=== PATIENT | male | born 1985 | race Two or more races ===

== ENCOUNTER 2017-05-26 21:18 | Emergency (ER) | payer OTHER ==
[2017-05-26 22:41] LABS: Urine Appearance Clear; Urine Blood Negative (Negative); Urine Color Straw; Urine Ketones Negative (Negative); Urine Protein Negative (Negative); Urine Specific Gravity 1.004 (1.010-1.030); Urine Urobilinogen Negative (Negative)
[2017-05-26 22:50] LABS: EGFR Non-African American 101.7 (>60)
[2017-05-26 22:53] LABS: ABS Basophils 0.1 10^3/ul (0-0.2); ABS Eosinophils 0.1 10^3/ul (0-0.6); ABS Lymphocytes 2.5 10^3/ul (1.0-4.8); ABS Monocytes 0.8 10^3/ul (0-0.8); ABS Neutrophils 6.2 10^3/ul (1.5-7.7); ABS Nucleated RBC 0 10^3/ul; Eosinophil % 1.2 % (0-6); Hematocrit 45 % (42-52); Hemoglobin 15.3 g/dl (14.0-18.0); Lymphocyte % 25.9 % (25-47); Mean Corpuscular HGB Conc 34 g/dl (31-36); Mean Corpuscular Hemoglobin 30 pg (27-31); Mean Corpuscular Volume 87 fL (80-94); Mean Platelet Volume 8 um3 (7.4-10.4); Nucleated Red Blood Cells % 0.1; Platelet Count 205 10^3/ul (150-450); Red Blood Count 5.15 10^6/ul (4.0-5.4); Red Cell Distribution Width 13 % (10.5-15); White Blood Count 9.7 10^3/ul (3.5-10.8)
[2017-05-26] MEDS ORDERED: Magnesium CITRATE* 300 ML BTL PO ONE (23:04)
[2017-05-26] MEDS ORDERED: Bisacodyl SUPP* 10 MG SUPP PR ONE (23:06)
--- NOTE | 2017-05-26 23:15 | ED ---
Madison Renee Gabriel, scribed for Merary Funk MD on 05/26/17 at 2210 . Abdominal Pain/Male - HPI Summary HPI Summary: This patient is a 31 year old M presenting to [facility] with a chief complaint of ABD pain that began 10 days ago. The patient rates the pain 6/10 in severity and located in his suprapubic region. Patient reports blood in his stool, burning before urination, and lower back pain. Patient denies vomiting and difficulty moving bowels. Last BM was tonight - History of Current Complaint Chief Complaint: EDAbdPain Stated Complaint: ABD PAIN Time Seen by Provider: 05/26/17 21:47 Hx Obtained From: Patient Onset/Duration: Still Present Timing: Constant Severity Initially: Moderate Severity Currently: Moderate Pain Intensity: 6 Pain Scale Used: 0-10 Numeric Location: Suprapubic Radiates: Yes Radiates to: Back Associated Signs And Symptoms: Positive: Other - blood in his stool, burning before urination, and lower back pain. Negative: Constipation, Vomiting - Allergies/Home Medications Allergies/Adverse Reactions: Allergies Allergy/AdvReac Type Severity Reaction Status Date / Time No Known Allergies Allergy Verified 05/26/17 23:02 PMH/Surg Hx/FS Hx/Imm Hx Endocrine/Hematology History: Denies: Hx Anticoagulant Therapy, Hx Blood Disorders, Hx Bone Marrow Disease Cardiovascular History: Reports: Hx Hypertension Denies: Hx Angioplasty Respiratory History: Denies: Hx Chronic Obstructive Pulmonary Disease (COPD) GI History: Denies: Hx Obstructive Bowel Psychiatric History: Reports: Hx Attention Deficit Hyperactivity Disorder Infectious Disease History: No Infectious Disease History: Denies: Traveled Outside the [place] in Last 30 Days - Family History Known Family History: Positive: Hypertension Negative: Cardiac Disease, Diabetes, Respiratory Disease, Seizure Disorder, Blood Disorder - Social History Occupation: Student Alcohol Use: None Hx Substance Use: No Substance Use Type: Reports: None Hx Tobacco Use: No Smoking Status (MU): Never Smoked Tobacco Review of Systems Gastrointestinal: Negative - difficulty moving bowels Positive: Abdominal Pain, Other - blood in stool . Negative: Vomiting Positive: burning Positive: Other - lower back pain All Other Systems Reviewed And Are Negative: Yes Physical Exam - Summary Physical Exam Summary: VITAL SIGNS: Reviewed. GENERAL: Patient is a well-developed and nourished MALE who is lying comfortable in the stretcher. Patient is not in any acute respiratory distress. HEAD AND FACE: No signs of trauma. No ecchymosis, hematomas or skull depressions. No sinus tenderness. EYES: PERRLA, EOMI x 2, No injected conjunctiva, no nystagmus. EARS: Hearing grossly intact. Ear canals and tympanic membranes are within normal limits. MOUTH: Oropharynx within normal limits. NECK: Supple, trachea is midline, no adenopathy, no JVD, no carotid bruit, no c- spine tenderness, neck with full ROM. CHEST: Symmetric, no tenderness at palpation LUNGS: Clear to auscultation bilaterally. No wheezing or crackles. CVS: Regular rate and rhythm, S1 and S2 present, no murmurs or gallops appreciated. ABDOMEN: Soft, non-tender. No signs of distention. No rebound no guarding, and no masses palpated. Bowel sounds are hyperactive EXTREMITIES: FROM in all major joints, no edema, no cyanosis or clubbing. NEURO: Alert and oriented x 3. No acute neurological deficits. Speech is normal and follows commands. SKIN: Dry and warm Triage Information Reviewed: Yes Vital Signs On Initial Exam: Initial Vitals Temp Pulse Resp BP Pulse Ox 98.6 F 67 18 128/78 100 05/26/17 21:30 05/26/17 21:30 05/26/17 21:30 05/26/17 21:30 05/26/17 21:30 Vital Signs Reviewed: Yes Diagnostics - Vital Signs Vital Signs Temp Pulse Resp BP Pulse Ox 05/26/17 21:30 98.6 F 67 18 128/78 100 - Laboratory Result Diagrams: 05/26/17 22:20 05/26/17 22:20 Lab Statement: Any lab studies that have been ordered have been reviewed, and results considered in the medical decision making process. - Radiology ABD xray Radiology Interpretation Completed By: ED Physician - stool retention Abdominal Pain Fem Course/Dx - Course Assessment/Plan: This patient is a 31 year old M presenting to [facility] with a chief complaint of ABD pain that began 10 days ago. The patient rates the pain 6 /10 in severity and located in his suprapubic region. Patient reports blood in his stool, burning before urination, and lower back pain. Patient denies vomiting and difficulty moving bowels. Last BM was tonight. ABD XR reveals, stool retention. Test results with no significant abnormalities. UA and bloodwork obtained. Dx constipation. Patient will be discharged and follow up from PCP. The patient is agreeable with this plan. - Diagnoses Provider Diagnoses: Constipation Discharge - Discharge Plan Condition: Stable Disposition: HOME Referrals: Norma ALCARAZ,Sarah Neumann [Primary Care Provider] - 4 Days Additional Instructions: Increase fiber intake. RETURN TO EMERGENCY DEPARTMENT FOR ANY NEW OR WORSENING SYMPTOMS The documentation as recorded by the Madison guzmán Gabriel accurately reflects the service I personally performed and the decisions made by me, Merary Fukn MD.
[2017-05-26 23:30] VITALS: BP 130/70
--- NOTE | 2017-05-27 07:31 | RAD ---
INDICATION: Abdominal pain. COMPARISON: There are no prior studies available for comparison. TECHNIQUE: Supine and upright views of the abdomen were obtained. FINDINGS: The small bowel and colon appear nondistended. No free intraperitoneal air is seen. There is a large amount retained stool present. No abnormal calcifications are seen. IMPRESSION: NO EVIDENCE FOR ACUTE FINDING, LARGE AMOUNT RETAINED STOOL.
== END 2017-05-26 23:31 | disposition home or self-care (01) ==
LOC: ED 21:18
DX: K59.00 Constipation, unspecified (principal); R10.9 Unspecified abdominal pain; M54.5 Low back pain
CPT/HCPCS: 36415; 74019; 80053; 81003; 82150; 83690; 85025; 86140; 99283; A9270-GY

== ENCOUNTER 2017-11-17 07:32 | Emergency (ER) | payer BC, OTHER ==
[2017-11-17 07:47] VITALS: BP 134/74
[2017-11-17] MEDS ORDERED: Albuterol/Ipratropium NEB.SOL* Albuterol 2.5 MG/Ipratropium 0.5 MG 3 ML INH ONE ×2 (08:06→08:13)
[2017-11-17] MEDS ORDERED: predniSONE TAB* 20 MG PO ONE (08:08)
--- NOTE | 2017-11-17 08:13 | UC ---
Shortness of Breath HPI - HPI Summary HPI Summary: Patient is a 32 y/o M w/ c/o asthma Sx onsetting four days ago. He reports head congestion, SOB, upper back pain, and some cough. Abdominal pain is denied. Present Sx are reported to be similar to prior asthma exacerbations. On nurse's note, pain is rated 2/10. Patient states he experiences upper back discomfort with deep breaths and notes SOB worsens at night. He states he has albuterol, has been using inhaler, and started 10 mg Loratadine last night. Nothing is reported to alleviate Sx. Home medications and allergies reviewed. - History of Current Complaint Chief Complaint: UCAsthma Stated Complaint: SOB ASTHMA Hx Obtained From: Patient Onset/Duration: Lasting Days - onset 4 days ago, Still Present Timing: Constant Current Severity: Mild - 2/10 Aggrevating Factors: Deep Breaths - aggravates back discomfort, Other - SOB worsens at night Alleviating Factors: Nothing Associated Signs & Symptoms: Positive: Other - POSITIVE: cough, upper back pain , head congestion NEGATIVE: abdominal pain - Allergy/Home Medications Allergies/Adverse Reactions: Allergies Allergy/AdvReac Type Severity Reaction Status Date / Time No Known Allergies Allergy Verified 11/17/17 07:48 Home Medications: Home Medications Albuterol HFA INHALER* [Ventolin HFA Inhaler*] 2 puff INH Q4H PRN 11/17/17 [ History Confirmed 11/17/17] Guanfacine HCl [Intuniv] 3 mg PO DAILY WITH MEAL 11/17/17 [History Confirmed ] Loratadine 10 mg PO DAILY WITH MEAL 11/17/17 [History Confirmed 11/17/17] Ramipril [Altace] 10 mg PO DAILY WITH MEAL 11/17/17 [History Confirmed 11/17/17] PMH/Surg Hx/FS Hx/Imm Hx Cardiovascular History: Hypertension Respiratory History: Asthma Other History Of: Negative For: Anticoagulant Therapy - Surgical History Surgical History: None - Family History Known Family History: Positive: Hypertension Negative: Cardiac Disease, Diabetes, Respiratory Disease, Seizure Disorder, Blood Disorder - Social History Alcohol Use: None Substance Use Type: None Smoking Status (MU): Never Smoked Tobacco Review of Systems ENT: Other - head congestion Respiratory: Shortness Of Breath, Cough Gastrointestinal: Other - NEGATIVE: abdominal pain Musculoskeletal: Other: - POSITIVE: upper back pain All Other Systems Reviewed And Are Negative: Yes Physical Exam - Summary Physical Exam Summary: Appearance: Well-appearing, Well-nourished Skin: Warm Eyes: Normal ENT: Normal Neck: Supple, nontender Respiratory: minimal expiratory wheeze Cardiovascular: Normal S1, S2. No murmurs. Normal distal pulses in tibial and radial bilaterally. Abdomen: Soft, nontender Musculoskeletal: Normal, Strength/ROM Intact Neurological: Normal, A&Ox3 Psychiatric: Normal General: No acute distress Triage Information Reviewed: Yes Vital Signs: Initial Vital Signs Temp 97.6 F 11/17/17 07:41 Pulse 80 11/17/17 07:41 Resp 20 11/17/17 07:41 BP 134/74 11/17/17 07:41 Pulse Ox 100 11/17/17 07:41 Vital Signs Reviewed: Yes Diagnostics - Radiology CXR Xray Interpretation: No Acute Changes Radiology Interpretation Completed By: ED Physician - No obvious consolidations. He does have bilateral hyperinflation of lungs, flattened diaphragms. No signs pneumothorax., Radiologist - Elevated lung volumes may reflect obstructive lung disease or simply exubarant insipratory effort for examination. No evidence for acute intrathoracic disease. This report was reviewed by ED physician. Re-Evaluation - Re-Evaluation First Eval Re-Evaluation Time: 08:52 Change: Improved Comment: Nebulizer treatment helped w/ Sx and patient reports feeling better. Discussed results of CXR as well as plan of discharge. Patient is agreeable with plan. Shortness of Breath Dx - Course Course Of Treatment: Patient feels better after medications here in the emergency department, chest x-ray consistent with asthma with bilateral hypoinflation without evidence of consolidation or pneumothorax. Patient instructed continue medications and to make an appointment with primary care provider for further care. Agrees to understands discharge instructions. Vital signs stable. - Differential Dx/Diagnosis Provider Diagnoses: asthma exacerbation Discharge - Sign-Out/Discharge Documenting (check all that apply): Patient Departure - discharge All imaging exams completed and their final reports reviewed: Yes - Discharge Plan Condition: Stable Disposition: HOME Prescriptions: Albuterol inh POWDER (NF) [Proair Respiclick] 2 puff INH Q4H PRN #2 mdi PRN Reason: Sob/Wheezing predniSONE TAB* [Deltasone TAB*] 50 mg PO DAILY #4 tab Patient Education Materials: Asthma (ED) Referrals: Norma ALCARAZ,Sarah Neumann [Primary Care Provider] - Additional Instructions: PLEASE USE MEDICATIONS DIRECTED PLEASE RETURN TO THE EMERGENCY DEPARTMENT FOR ANY WORSENING OR CONCERNING SYMPTOMS PLEASE MAKE AN APPOINTMENT TO SEE YOUR PRIMARY CARE DOCTOR WITHIN 1 WEEK. - Billing Disposition and Condition Condition: STABLE Disposition: Home - Attestation Statements Document Initiated by Sallieibe: Yes Documenting Scribe: Donaldo Mcknight Provider For Whom Scribe is Documenting (Include Credential): Martin Hernandez Scribe Attestation: IDonaldo, scribed for Martin Hernandez on 11/17/17 at 0929. Scribe Documentation Reviewed: Yes Provider Attestation: The documentation as recorded by the Donaldo guzmán accurately reflects the service I personally performed and the decisions made by meMartin
--- NOTE | 2017-11-17 08:34 | RAD ---
INDICATION: Chest and back pain since night. COMPARISON: No relevant prior exams available on the [facility] PACS for comparison. TECHNIQUE: Dual energy PA and routine lateral views of the chest were obtained. REPORT: Elevated lung volumes. No focal pulmonary lesion, compelling alveolar consolidation, pleural effusion, pneumothorax. The heart, pulmonary vasculature, and mediastinal contours are unremarkable. Unremarkable soft tissue contours and osseous structures. IMPRESSION: #. Elevated lung volumes may reflect obstructive lung disease or simply exuberant inspiratory effort for examination. #. No evidence for acute intrathoracic disease.
== END 2017-11-17 09:17 | disposition home or self-care (01) ==
LOC: UCEAST 07:32
DX: J45.901 Unspecified asthma with (acute) exacerbation (principal)
CPT/HCPCS: 71046; 99212; A9270-GY; G0463; J7512

== ENCOUNTER 2018-02-24 14:43 | Emergency (ER) | payer BC ==
[2018-02-24 15:07] VITALS: BP 151/98
--- OUTSIDE RECORDS SUMMARY | 2018-02-24 15:25 | XMS REPORT ---
:1985 External Reference #:[id number] Author Organization [facility] Address [address] [place] [address] [place] [address] Phone [phone] Care Team Providers Name Role Phone Tim Holt MD Primary Care Physician Unavailable Payers Type Date Identification Numbers Payment Provider Subscriber Commercial Effective: Policy Number: [employer] Buddy Barriga 2015 [id number] Bhanu Expires: 2017 Group Number: [id number] [id number] Group Name: [id number] [place] [address] PayID: [id number] [facility] [address] Policy Number: [facility] Buddy Barriga [id number] Bhanu PayID: [id number] [facility],[address] [place] [address] Problems Description No Information Social History Type Date Description Comments Smoking Patient has never smoked Allergies, Adverse Reactions, Alerts Date Description Reaction Status Severity Comments 02/02/2018 Shellfish-Derived Products active Mild to Moderate Medications Medication Date Status Form Strength Qnty SIG Indications Ordering Provider Fluticasone 02/02/ Active Suspension 50mcg/Act 16unit 2 sprays R09.81 Deng Propionate 2018 s each JELENA Espino nostril qd. Augmentin 02/02/ Hx Tablets 875-125mg 20tabs 1 tablet by R09.81 Deng 2018 - mouth q12 JELENA Espino 02/16/ hours for 2018 10 days Ramipril 00/00/ Active Capsules 10mg 1 by mouth Unknown 0000 every day Guanfacine 00/00/ Active Tablets 1mg 3 tab in Unknown HCL 0000 mid afternoon Vitamin K2 /00/ Active Capsules 100mcg 1 by mouth Unknown 0000 every day Magnesium 00/ Active Capsules 300mg 1 by mouth Unknown 0000 twice a day Chamomile / Active 1200mg qg Unknown Extract 0000 Vitamin D / Active Capsules 2000Unit 1 by mouth Unknown (Ergocalcifer 0000 every day ol) Ventolin HFA / Active Aerosol 108(90Base 2 puffs by Unknown 0000 ) mcg/Act mouth four times a day as needed Vital Signs Date Vital Result Comment 02/02/2018 Height 67 inches 5'7" Weight 133.00 lb with shoes Heart Rate 99 /min BP Systolic 110 mmHg BP Diastolic 64 mmHg Body Temperature 98.0 F O2 % BldC Oximetry 99 % BMI (Body Mass Index) 20.8 kg/m2 Results Description No Information Procedures Date CPT Code Description Status 06/18/2016 43523 ECHO Stress Test Incl Perf Contiuous ekg Monitoring Completed W/Phys Superv 05/08/2016 61888 ECHO Transthoracic, Real-Time 2D With Doppler And Color Completed Flow Plan of Care Future Appointment(s):05/18/2018 4:20 pm - Tim Holt M.D.,FACP at [facility] - [address]02/02/2018 - Deng Espino NPI10 Essential (primary) hypertensionComments:~B_HYPERTENSION:~b_Well controlled on current regimen. Continue present management.Follow up:ZOFIA: Kathryn. 6 [id number] Mild intermittent asthma, uncomplicatedComments:If you start needing your rescue inhaler more than 4 times weekly please let me know.R09.81 Nasal congestionNew Medication:Fluticasone Propionate 50 mcg/ActAugmentin 875-125 mgComments:I recommend trying fluticasone nasal spray. Use two sprays each nostril once daily. Try this for at least two weeks, as it takes at least 7-10 days to start working. If you develop symptoms like when you have had sinusitis in the past while you are away, you can start taking the antibiotic.
--- NOTE | 2018-02-24 15:33 | UC ---
Respiratory Complaint HPI - HPI Summary HPI Summary: PT HAS BEEN COUGHING FOR A FEW MONTHS. TRIED TAKING LORATADINE AND ALBUTEROL BUT SX HAVE BEEN PERSISTENT. NO FEVER OR N/V. WAS PRESCRIBED AUGMENTIN BY HIS PCP A COUPLE OF WEEKS AGO BUT JUST STARTED TAKING IT YESTERDAY. CAME IN TODAY BECAUSE HE DEVELOPED SORE NECK MUSCLES AND SINUS PRESSURE TODAY. - History of Current Complaint Chief Complaint: UCGeneralIllness Stated Complaint: SINUS PRESSURE Time Seen by Provider: 02/24/18 15:02 Hx Obtained From: Patient Onset/Duration: Gradual Onset, Lasting Weeks, Still Present Timing: Constant Severity Initially: Moderate Severity Currently: Moderate Pain Intensity: 8 Pain Scale Used: 0-10 Numeric Character: Cough: Nonproductive Aggravating Factors: Allergens Alleviating Factors: Bronchodilator - ALBUTEROL, OTC Meds - TYLENOL Associated Signs And Symptoms: Positive: URI, Nasal Congestion, Sinus Discomfort - Allergies/Home Medications Allergies/Adverse Reactions: Allergies Allergy/AdvReac Type Severity Reaction Status Date / Time No Known Allergies Allergy Verified 02/24/18 15:08 PMH/Surg Hx/FS Hx/Imm Hx Cardiovascular History: Hypertension Respiratory History: Asthma Other History Of: Negative For: Anticoagulant Therapy - Surgical History Surgical History: None - Family History Known Family History: Positive: Hypertension Negative: Cardiac Disease, Diabetes, Respiratory Disease, Seizure Disorder, Blood Disorder - Social History Alcohol Use: None Substance Use Type: None Smoking Status (MU): Never Smoked Tobacco Review of Systems All Other Systems Reviewed And Are Negative: Yes Constitutional: Positive: Fatigue ENT: Positive: Sinus Congestion, Sinus Pain/Tenderness Respiratory: Positive: Cough Cardiovascular: Positive: Negative Gastrointestinal: Positive: Negative Musculoskeletal: Positive: Myalgia Neurological: Positive: Headache Physical Exam Triage Information Reviewed: Yes Appearance: Well-Appearing, No Pain Distress, Well-Nourished Vital Signs: Initial Vital Signs Temp 97.0 F 02/24/18 14:45 Pulse 103 02/24/18 14:45 Resp 18 02/24/18 14:45 BP 151/98 02/24/18 14:45 Pulse Ox 99 02/24/18 14:45 Vital Signs Reviewed: Yes Eyes: Positive: Conjunctiva Clear ENT: Positive: Hearing grossly normal, Pharynx normal, TMs normal, Sinus tenderness Neck: Positive: Supple, Nontender, No Lymphadenopathy Respiratory Exam: Normal Cardiovascular Exam: Normal Abdomen Description: Positive: Soft Musculoskeletal: Positive: No Edema Neurological: Positive: Alert, Other: - NEG KERNIG AND BRUDZIANDREW Psychological: Positive: Age Appropriate Behavior Skin: Negative: Rashes UC Diagnostic Evaluation - Laboratory O2 Sat by Pulse Oximetry: 99 Respiratory Course/Dx - Course Course Of Treatment: PATIENT'S SYMPTOMS ARE LIKELY MULTIFACTORIAL WITH A COMPONENT OF ALLERGIES ALONG WITH AN ACUTE URI AND SINUSITIS. ADVISED PATIENT TO RESUME TAKING HIS LORATADINE DAILY. ALBUTEROL NEEDED. ALSO CONTINUE AUGMENTIN FOR SINUS INFECTION. CLINICAL PRESENTATION NOT CONSISTENT WITH MENINGITIS. PATIENT WILL TAKE IBUPROFEN FOR DISCOMFORT AND STAY WELL-HYDRATED. CHEST X-RAY TODAY IS UNREMARKABLE. CBC PENDING. TO ED IF SX WORSEN. - Differential Dx/Diagnosis Provider Diagnosis: Sinusitis Discharge - Sign-Out/Discharge Documenting (check all that apply): Patient Departure All imaging exams completed and their final reports reviewed: Yes - Discharge Plan Condition: Stable Disposition: HOME Patient Education Materials: Sinusitis (ED) Referrals: Norma ALCARAZ,Sarah Neumann [Medical Doctor] - If Needed Additional Instructions: CHEST XRAY TODAY UNREMARKABLE. CBC DRAWN. WE WILL CALL YOU WITH ANY ABNORMAL RESULTS. CONTINUE YOUR AUGMENTIN FOR THE FULL COURSE. RESUME YOUR LORATADINE DAILY. FOLLOW-UP WITH YOUR PCP IF YOU ARE NOT IMPROVING EXPECTED. GO TO THE ED IF YOU DEVELOP FEVER, WORSENING PAIN, NAUSEA OR ANY OTHER CONCERNING SYMPTOMS. IBUPROFEN MAX DOSE: 600MG (3 TABS) EVERY 6 HRS OR 800MG (4 TABS) EVERY 8 HRS OR NAPROXEN MAX DOSE: 440MG (2 TABS) EVERY 12 HRS TYLENOL MAX DOSE: 1000MG (2 EXTRA STRENGTH TABS) EVERY 8 HRS OR 650MG (2 REGULAR TABS) EVERY 6 HRS - Billing Disposition and Condition Condition: STABLE Disposition: Home
[2018-02-24 19:02] LABS: ABS Basophils 0 10^3/ul (0-0.2); ABS Eosinophils 0.2 10^3/ul (0-0.6); ABS Lymphocytes 1.9 10^3/ul (1.0-4.8); ABS Monocytes 1.5 10^3/ul (0-0.8); ABS Neutrophils 10.9 10^3/ul (1.5-7.7); ABS Nucleated RBC 0 10^3/ul; Eosinophil % 1.4 %; Hematocrit 46 % (42-52); Hemoglobin 15.8 g/dl (14.0-18.0); Lymphocyte % 12.9 %; Mean Corpuscular HGB Conc 34 g/dl (31-36); Mean Corpuscular Hemoglobin 30 pg (27-31); Mean Corpuscular Volume 86 fL (80-94); Mean Platelet Volume 8.4 fL (7.4-10.4); Nucleated Red Blood Cells % 0; Platelet Count 241 10^3/ul (150-450); Red Blood Count 5.32 10^6/ul (4.00-5.40); Red Cell Distribution Width 13 % (10.5-15); White Blood Count 14.5 10^3/ul (3.5-10.8)
--- NOTE | 2018-02-25 17:21 | UC ---
- Progress Note Progress Note: 02/25/2018 WBC=14.5 elevated w/ ABS neutrophils=10.9 elevated Pt Dx w/ sinusitis and Rx Augmentin PO Please call back patient and inform him of results. Strongly advised labs shows a bacterial infection the antibiotic you were Rx will cover for it. But if symptoms are not improving Pt should go to the ER the ER further treatment. Thank you Hailey Wynn PA-C Course/Dx - Diagnoses Provider Diagnoses: Sinusitis Discharge - Sign-Out/Discharge Documenting (check all that apply): Patient Departure - d/c home All imaging exams completed and their final reports reviewed: Yes - Discharge Plan Condition: Stable Disposition: HOME Patient Education Materials: Sinusitis (ED) Referrals: Norma ALCARAZ,Sarah Neumann [Medical Doctor] - If Needed Additional Instructions: CHEST XRAY TODAY UNREMARKABLE. CBC DRAWN. WE WILL CALL YOU WITH ANY ABNORMAL RESULTS. CONTINUE YOUR AUGMENTIN FOR THE FULL COURSE. RESUME YOUR LORATADINE DAILY. FOLLOW-UP WITH YOUR PCP IF YOU ARE NOT IMPROVING EXPECTED. GO TO THE ED IF YOU DEVELOP FEVER, WORSENING PAIN, NAUSEA OR ANY OTHER CONCERNING SYMPTOMS. IBUPROFEN MAX DOSE: 600MG (3 TABS) EVERY 6 HRS OR 800MG (4 TABS) EVERY 8 HRS OR NAPROXEN MAX DOSE: 440MG (2 TABS) EVERY 12 HRS TYLENOL MAX DOSE: 1000MG (2 EXTRA STRENGTH TABS) EVERY 8 HRS OR 650MG (2 REGULAR TABS) EVERY 6 HRS - Billing Disposition and Condition Condition: STABLE Disposition: Home
== END 2018-02-24 16:45 | disposition home or self-care (01) ==
LOC: UCEAST 14:43
DX: J32.9 Chronic sinusitis, unspecified (principal); R05 Cough
CPT/HCPCS: 36415; 71046; 85025; 99201; G0463

== ENCOUNTER 2018-03-25 11:33 | Emergency (ER) | payer BC ==
[2018-03-25] MEDS ORDERED: NS 0.9% 1000 ML* 2,000 ML IV ONE (12:33)
--- NOTE | 2018-03-25 12:42 | ED ---
Neurological HPI - HPI Summary HPI Summary: A 32 y/o male presents to [facility] with a chief complaint of intermittent numbness in his left leg since 03/17/18. He also c/o tingling. Per triage he rates his pain as 4/10. He reports numbness and pain in his left eye and the left side of his face the night of 03/24/18. He claims that walking worsens his pain. He also claims that his right leg is feels tingling but does not feel numbness. He claims his left arm feels like muscles are sore like after being in the gym for too long. He denies weakness. He has a Hx of HTN and has been medicating since 2011. He claims that his mother had a TIA at 32 and is now fully recovered. He also has a Hx of migraines but notes that eye pain is not related to his migraines. His last migraine was 02/24/18. He denies a SHx. NKDA. He denies smoking, EtOH use or drug use. The patient takes Ramipril 10mg once per day and takes Intuniv for ADHD. His next primary care physician appointment is scheduled with Dr. Holt at the end of April 2018. Vital Signs in room HR 82 bpm, BP 122/76. - History of Current Complaint Chief Complaint: EDNeurologicalDeficit Stated Complaint: NUMBNESS ON LEFT SIDE, PAIN IN LEFT EYE Time Seen by Provider: 03/25/18 12:01 Hx Obtained From: Patient Onset/Duration: Sudden Onset, Started days ago, Still Present Onset Severity: Moderate Current Severity: Moderate Neurological Deficit Location: Generalized - left face, left leg Pain Intensity: 4 Pain Scale Used: 0-10 Numeric Character: Numbness/Tingling Aggravating: Exertion - Walking Alleviating: Nothing Associated Signs and Symptoms: Negative: Weakness - Allergy/Home Medications Allergies/Adverse Reactions: Allergies Allergy/AdvReac Type Severity Reaction Status Date / Time shellfish derived Allergy Anaphylatic Verified 03/25/18 11:55 Shock Home Medications: Home Medications Guanfacine HCl [Guanfacine HCl ER] 3 mg PO DAILY 03/25/18 [History Confirmed 05/12] Ramipril CAP* [Altace CAP*] 10 mg PO DAILY 03/25/18 [History Confirmed 03/25/18] PMH/Surg Hx/FS Hx/Imm Hx Endocrine/Hematology History: Denies: Hx Anticoagulant Therapy, Hx Blood Disorders, Hx Bone Marrow Disease , Hx Diabetes, Hx Thyroid Disease Cardiovascular History: Reports: Hx Hypertension Denies: Hx Angioplasty Comment Only: Other Cardiovascular Problems/Disorders - HIGH BLOOD PRESSURE Respiratory History: Reports: Hx Asthma Denies: Hx Chronic Obstructive Pulmonary Disease (COPD) GI History: Denies: Hx Obstructive Bowel, Hx Ulcer Psychiatric History: Reports: Hx Attention Deficit Hyperactivity Disorder - Surgical History Surgery Procedure, Year, and Place: No SHx Infectious Disease History: No Infectious Disease History: Denies: Hx Hepatitis, Hx Human Immunodeficiency Virus (HIV), Traveled Outside the [place] in Last 30 Days - Family History Known Family History: Positive: Hypertension, Other - Mother had TIA at 32 years old and is fully recovered now Negative: Cardiac Disease, Diabetes, Respiratory Disease, Seizure Disorder, Blood Disorder - Social History Occupation: Employed Full-time Lives: Alone Alcohol Use: None Hx Substance Use: No Substance Use Type: Reports: None Hx Tobacco Use: No Smoking Status (MU): Never Smoked Tobacco Review of Systems Negative: Fever Positive: Other - positive: left arm "Feels like muscles are sore like after being in the gym for too long" Positive: Paresthesia - left and right leg, Numbness - left leg, left eye All Other Systems Reviewed And Are Negative: Yes Physical Exam - Summary Physical Exam Summary: Appearance: Well-appearing, no pain distress, well-nourished Skin: Warm, color reflects adequate perfusion, dry Head: Normal Head/Face inspection, atraumatic Eyes: Conjunctiva clear, EOMI, PERRL ENT: TMs are clear bilaterally, pharynx clear, no sinus tenderness Neck: Supple, no nodes, no JVD Respiratory: Lungs clear, normal breath sounds, no respiratory distress Cardio: RRR, No murmur, pulses normal, brisk capillary refill Abdomen: Soft, nontender Bowel sounds: Present Musculoskeletal: Strength Intact/ROM intact, no calf tenderness, no edema. Psychological: Normal Neuro: Alert, muscle tone normal, no focal deficit, see NIH, NIH 1 for decreased sensation left cheek. Triage Information Reviewed: Yes Vital Signs On Initial Exam: Initial Vitals Temp Pulse Resp BP Pulse Ox 98.2 F 80 20 137/89 99 03/25/18 11:38 03/25/18 11:38 03/25/18 11:38 03/25/18 11:38 03/25/18 11:38 Vital Signs Reviewed: Yes - [place] Coma Scale Best Eye Response: 4 - Spontaneous Best Motor Response: 6 - Obeys Commands Best Verbal Response: 5 - Oriented Coma Scale Total: 15 Diagnostics - Vital Signs Vital Signs Temp Pulse Resp BP Pulse Ox 03/25/18 12:00 74 13 100 03/25/18 11:53 97 10 130/83 97 03/25/18 11:50 103 9 100 03/25/18 11:38 98.2 F 80 20 137/89 99 - Laboratory Result Diagrams: 03/25/18 12:52 03/25/18 12:52 Lab Statement: Any lab studies that have been ordered have been reviewed, and results considered in the medical decision making process. - CT Brain CT Interpretation Completed By: Radiologist Summary of CT Findings: NO ACUTE INTRACRANIAL PATHOLOGY. ED provider has reviewed this imaging report. Brain MRI CT Interpretation Completed By: Radiologist Summary of CT Findings: No intracranial mass or hemorrhage is noted. ED provider has reivewed this imaging report. - EKG 12:47 Cardiac Rate: NL - 93 bpm EKG Rhythm: Sinus Rhythm ST Segment: Non-Specific Ectopy: None Summary of EKG Findings: NSR at 93 bpm with nl AVIVCT, nlQTc, nl axis and no acute changes. No prior EKG to compare. NIH Scale - NIH Scale Level of Consciousness: Alert/Keenly Responsive Ask Patient the Month and His/Her Age: Both Correct Ask Pt to Open/Close Eyes and Rv Service Technician/Release Non-Paretic Hand: Both Correctly Best Gaze (Only Horizontal Eye Movement): Normal Visual Field Testing: No Visual Loss Facial Paresis-Pt to Smile & Close Eyes or Grimace Symmetry: Normal/Symmetrical Motor Function - Right Arm: No Drift-Holds 10 Seconds Motor Function - Left Arm: No Drift-Holds 10 Seconds Motor Function - Right Leg: No Drift-Holds 10 Seconds Motor Function - Left Leg: No Drift-Holds 10 Seconds Limb Ataxia-Must be out of Proportion to Weakness Present: Absent Sensory (Use Pinprick to Test Arms/Legs/Trunk/Face): Pinprick Less on Affected Best Language (Describe Picture, Name Items): No Aphasia Dysarthria (Read Several Words): Normal Extinction and Inattention: No Abnormality Total Score: 1 Re-Evaluation - Re-Evaluation First Eval Re-Evaluation Time: 13:01 Change: Unchanged Comment: BP is 135/81 Second Eval Re-Evaluation Time: 14:48 Change: Unchanged Comment: no new neurologic symptoms. Tingling left face and left leg. Mild lower abdominal cramp Third Eval Re-Evaluation Time: 18:30 Change: Unchanged Comment: Discussed discharge. Course/Dx - Course Course Of Treatment: A 32 y/o male presents to [facility] with a chief complaint of intermittent numbness in his left leg since 03/17/18. He reports a PMHx of HTN and migraines. He denies a SHx. The patient's mother had a TIA when she was 32 years old. The patient had a GCS of 15 and an NIH of 1. EKG revealed NSR at 93 bpm with nl AVIVCT, nlQTc, nl axis and no acute changes. No prior EKG to compare. Brain CT impression: NO ACUTE INTRACRANIAL PATHOLOGY. At 15:10 Dr. Villafuerte will consult in person and ordered a brain MRI without contrast. Brain MRI impression: No intracranial mass or hemorrhage is noted. In the ED course the patient was given IV fluids. Dx: paresthesia. The patient will be discharged. He was given strict return precautions and was instructed to follow up with Dr. Holt in [address] Villafuerte if he felt necessary. He is agreeable with this plan. - Diagnoses Provider Diagnoses: Paresthesia - Physician Notifications Discussed Care Of Patient With: Simone Villafuerte Time Discussed With Above Provider: 15:03 Instructed by Provider To: Other - Alfredo, N.P. for Dr. Villafuerte took a message for Dr. Villafuerte. At 15:10 Dr. Villafuerte will consult in person. At 16:05 Dr. Villafuerte has ordered MRI without contrast of brain to evaluate for possible MS and optic neuritis. Discharge - Sign-Out/Discharge Documenting (check all that apply): Patient Departure - DC - Discharge Plan Condition: Stable Disposition: HOME Patient Education Materials: Paresthesia (ED) Forms: *Work Release Referrals: Simone Villafuerte MD [Medical Doctor] - If Needed Tim Holt MD [Primary Care Provider] - 2 Days (2) Additional Instructions: Lyme serology is pending at this time. Your CT and your MRI were normal. The reports are copied in this report. You were seen by Dr. Villafuerte in the ER, and he ordered the MRI. With the normal MRI, there is no further treatment needed, but the neurology group will consult again if needed. Return to the ER if you have any new or worsening symptoms. - Attestation Statements Document Initiated by Sallieibtim: Yes Documenting Scribe: Lucien Medina Provider For Whom Pj is Documenting (Include Credential): Dr. Maya Henning MD Scribe Attestation: I, Lucien Medina, scribed for Dr. Maya Henning MD on 03/25/18 at 2104. Status of Scribe Document: Ready
[2018-03-25 13:00] LABS: ABS Basophils 0.1 10^3/ul (0-0.2); ABS Lymphocytes 2.7 10^3/ul (1.0-4.8); ABS Neutrophils 4.9 10^3/ul (1.5-7.7); ABS Nucleated RBC 0 10^3/ul; Eosinophil % 10.1 %; Hematocrit 50 % (42-52); Hemoglobin 17.3 g/dl (14.0-18.0); Mean Corpuscular HGB Conc 35 g/dl (31-36); Mean Corpuscular Hemoglobin 30 pg (27-31); Mean Corpuscular Volume 85 fL (80-94); Mean Platelet Volume 7.7 fL (7.4-10.4); Nucleated Red Blood Cells % 0; Platelet Count 203 10^3/ul (150-450); Red Blood Count 5.86 10^6/ul (4.00-5.40); Red Cell Distribution Width 13 % (10.5-15); White Blood Count 9.6 10^3/ul (3.5-10.8)
[2018-03-25 13:12] LABS: Activated Partial Thrombo Time 28.4 seconds (26.0-36.3); INR 0.99 (0.77-1.02)
[2018-03-25 13:20] LABS: Albumin 4.6 g/dL (3.2-5.2); Albumin/Globulin Ratio 1.5 (1-3); BUN/Creatinine Ratio 12.2 (8-20); Calcium 9.9 mg/dL (8.6-10.3); EGFR Non-African American 88.1 (>60); Globulin 3.1 g/dL (2-4); Potassium 3.9 mmol/L (3.5-5.0); Total Bilirubin 0.5 mg/dL (0.2-1.0); Total Protein 7.7 g/dL (6.4-8.9)
[2018-03-25 13:30] LABS: Urine Appearance Clear; Urine Bilirubin Negative (Negative); Urine Blood Negative (Negative); Urine Color Straw; Urine Glucose Negative (Negative); Urine Ketones Negative (Negative); Urine Nitrite Negative (Negative); Urine Protein Negative (Negative); Urine Specific Gravity 1.009 (1.010-1.030); Urine Urobilinogen Negative (Negative)
[2018-03-25 13:49] LABS: Barbiturates Urine Screen None Detected (None Detect); Benzodiazepine Urine Screen None Detected (None Detect); Urine Cannabinoids Screen None Detected (None Detect)
[2018-03-25 18:42] VITALS: BP 142/83
--- NOTE | 2018-03-25 19:29 | CONS ---
NEUROLOGY CONSULTATION: DATE OF CONSULT: 03/25/18 LOCATION: He is in the emergency room. REFERRING PHYSICIAN: Dr. Henning. CHIEF COMPLAINT: Numbness, eye pain. HISTORY OF PRESENT ILLNESS: Buddy Drummond is a 32-year-old right-handed man, who noted about a week or 8 days ago some numbness in his left foot and also some discomfort in his left hamstring region. The discomfort in the hamstring was particularly noticeable if he palpated deeply in the hamstring. He started to get some numbness of the right foot somewhere along the line, it is hard to sort out when. Today, he woke up and he felt pain behind his left eye. He noted it was worsened with eye movement. His vision was a little bit blurry first thing in the morning, but he does not seem to note any visual problems currently. The eye pain is considerably less, but it is still present if he moves his eye and focuses on it. It is not very painful in terms of intensity at this point. He has also noted perhaps a little numbness of the left hand, but it is hard to pin down out on that part. He became concerned that he might have multiple sclerosis or a stroke. His mother reportedly had a stroke in her early 30s. He presented to the emergency room for evaluation. PAST MEDICAL HISTORY: Notable for hypertension, attention deficit disorder. MEDICATIONS: At home, consist of: 1. Guanfacine 3 mg p.o. q. day. 2. Ramipril 10 mg p.o. q. day. ALLERGIES: He is allergic to SHELLFISH. SOCIAL HISTORY: He is a nonsmoker. He works at [employer]. REVIEW OF SYSTEMS: Notable for episodic migraines. He says he does not get them very often. He has a history of hypertension. There is no history of heart disease or diabetes. PHYSICAL EXAM: He is a well nourished and well hydrated 32-year-old. Temperature 98.2 orally, blood pressure running 120 to 140 systolic and into 70s diastolic. Heart rate fluctuates, but during exam is about 70. Respiratory rate is 12 and oxygen saturation is 99% on room air. Heart is in a regular rhythm without murmurs. Lungs are clear bilaterally. There are no cervical bruits. Neurological Exam: Pupils are equal at about 4 mm, reacting consensually to light to 2 mm. There is mild ptosis in the left eye. Eye movements are full and there is no nystagmus. Visual hinojosa are full to confrontation. There is some mild discomfort with movement of the left eye. Facial musculature is symmetric other than the ptosis. Facial sensation to temperature and light touch is symmetric. Palate and tongue appear normal; palate rises symmetrically and tongue protrudes in the midline. There is no dysarthria. Sensory exam reveals intact vibration, proprioception, pin discrimination, and light touch in all 4 extremities. There is no rest tremor. Gknjtr-hu-[id number] maneuver is normal bilaterally. Heel- to- muñoz maneuver is normal bilaterally. Motor exam reveals normal muscle tone, strength, and bulk proximally and distally in all limbs. Reflexes are intact and symmetric in the upper and lower extremities. Plantar responses are flexor bilaterally. Romberg sign is absent. He can stand unaided. He is alert and oriented and a good detailed historian. Memory is intact and language is fluent. He has adequate attention, concentration, and fund of knowledge. DIAGNOSTIC STUDIES/LAB DATA: Includes a CT of the brain interpreted as normal. I reviewed the images and I agree. CBC is unremarkable as is chemistry profile. INR normal at 0.99. Urine tox screen is negative. IMPRESSION AND PLAN: Impression is that of some fairly minor and vague sensory symptoms. However, with the addition of the more recent eye pain, multiple sclerosis does come into the differential. I think reasonable to obtain an MRI scan of the brain. I will do it noncontrasted, but if there are lesions, then I will plan to see him in followup in my office and get a brain MRI with contrast and cervical spine MRIs. If the MRI is negative which is my highest suspicion, then I think he can be discharged home with reassurance. [id number]/[facility] #: [id number] [facility] CENTERSunil
[2018-03-27 13:06] LABS: Lyme Disease Serology Positive (Negative)
[2018-03-28 16:18] LABS: Lyme Disease IgG Ab WB Negative (Negative); Lyme Disease IgG Bands Present p18 kDa; Lyme Disease IgM Bands Present p41 kDa
== END 2018-03-25 18:42 | disposition home or self-care (01) ==
LOC: ED 11:33
DX: R20.2 Paresthesia of skin (principal); H57.12 Ocular pain, left eye; I10 Essential (primary) hypertension; F90.9 Attention-deficit hyperactivity disorder, unspecified type; Z91.013 Allergy to seafood; Z82.49 Family history of ischemic heart disease and other diseases of the circulatory system
CPT/HCPCS: 36415; 70450; 70551; 80053; 80307; 81003; 83605; 84484; 85025; 85610; 85730; 86617; 86618; 93005; 99283

== ENCOUNTER 2018-04-16 12:47 | Emergency (ER) | payer BC ==
[2018-04-16 13:00] VITALS: BP 131/75
--- NOTE | 2018-04-16 14:41 | UC ---
UC General HPI - HPI Summary HPI Summary: 32-year-old male comes to clinic today with a chief complaint of joint and body aches. Symptoms started a couple months ago. Patient was seen on March 25, 2018 in the emergency department. he was seen by neurology Dr. Spaulding. He had a brain MRI which was normal. He's continued to have symptoms. On March 25 he had a Lyme test that was not conclusive. Patient has his primary care physician appointment set up for late April 2018. At this time no difficulty with speech or vision or weakness or numbness. - History of Current Complaint Chief Complaint: UCGeneralIllness Stated Complaint: FOLLOW UP Time Seen by Provider: 04/16/18 14:11 Pain Intensity: 4 - Allergy/Home Medications Allergies/Adverse Reactions: Allergies Allergy/AdvReac Type Severity Reaction Status Date / Time shellfish derived Allergy Anaphylatic Verified 03/25/18 11:55 Shock PMH/Surg Hx/FS Hx/Imm Hx Previously Healthy: Yes Other History Of: Negative For: Anticoagulant Therapy - Surgical History Surgical History: None Surgery Procedure, Year, and Place: No SHx - Family History Known Family History: Positive: Hypertension, Other - Mother had TIA at 32 years old and is fully recovered now Negative: Cardiac Disease, Diabetes, Respiratory Disease, Seizure Disorder, Blood Disorder - Social History Alcohol Use: None Substance Use Type: None Smoking Status (MU): Never Smoked Tobacco Review of Systems All Other Systems Reviewed And Are Negative: Yes Constitutional: Positive: Negative Skin: Positive: Negative Eyes: Positive: Negative ENT: Positive: Negative Respiratory: Positive: Negative Cardiovascular: Positive: Negative Gastrointestinal: Positive: Negative Motor: Positive: Negative Neurovascular: Positive: Negative Musculoskeletal: Positive: Arthralgia, Myalgia Neurological: Positive: Negative Psychological: Positive: Negative Is Patient Immunocompromised?: No Physical Exam Triage Information Reviewed: Yes Appearance: Well-Appearing, No Pain Distress, Well-Nourished Vital Signs: Initial Vital Signs Temp 98 F 04/16/18 12:57 Pulse 76 04/16/18 12:57 Resp 16 04/16/18 12:57 BP 131/75 04/16/18 12:57 Pulse Ox 100 04/16/18 12:57 Vital Signs Reviewed: Yes Eye Exam: Normal Eyes: Positive: Conjunctiva Clear Neck exam: Normal Neck: Positive: Supple Respiratory: Positive: Lungs clear, Normal breath sounds, No respiratory distress Cardiovascular: Positive: RRR Musculoskeletal Exam: Normal Musculoskeletal: Positive: Strength Intact, ROM Intact Neurological Exam: Normal Neurological: Positive: Alert, Muscle Tone Normal Psychological Exam: Normal Psychological: Positive: Age Appropriate Behavior Skin Exam: Normal Course/Dx - Course Course Of Treatment: The plan today is to check some lab work to include Lyme serology. Also checking a CRP CBC CMP and TSH. We will treat with 14 days of doxycycline for possible Lyme. Patient be followed his primary care doctor and if symptoms continue with neurology Dr. Spaulding. Reevaluate sooner if worse or any other questions or concerns. - Diagnoses Provider Diagnosis: Arthralgia, Myalgia Discharge - Sign-Out/Discharge Documenting (check all that apply): Patient Departure All imaging exams completed and their final reports reviewed: No Studies - Discharge Plan Condition: Stable Disposition: HOME Prescriptions: DOXYcycline CAP(*) [DOXYcycline 100MG CAP(*)] 100 mg PO BID #28 cap Patient Education Materials: Arthralgia (ED), Musculoskeletal Pain (ED) Referrals: Tim Holt MD [Primary Care Provider] - Simone Spaulding MD [Medical Doctor] - Additional Instructions: FOLLOW UP WITH YOUR PRIMARY CARE DOCTOR. FOLLOW UP WITH NEUROLOGY, DR SPAULDING, IF NOT IMPROVED. GET RECHECKED FOR ANY WORSENING OF YOUR CONDITION OR QUESTIONS OR CONCERNS. - Billing Disposition and Condition Condition: STABLE Disposition: Home
[2018-04-16 19:15] LABS: ABS Basophils 0.1 10^3/ul (0-0.2); ABS Eosinophils 0.4 10^3/ul (0-0.6); ABS Lymphocytes 2.9 10^3/ul (1.0-4.8); ABS Monocytes 0.6 10^3/ul (0-0.8); ABS Nucleated RBC 0 10^3/ul; Eosinophil % 4.7 %; Hematocrit 48 % (42-52); Hemoglobin 16.4 g/dl (14.0-18.0); Lymphocyte % 31.9 %; Mean Corpuscular HGB Conc 34 g/dl (31-36); Mean Corpuscular Hemoglobin 30 pg (27-31); Mean Corpuscular Volume 87 fL (80-94); Mean Platelet Volume 8.2 fL (7.4-10.4); Nucleated Red Blood Cells % 0; Platelet Count 262 10^3/ul (150-450); Red Blood Count 5.57 10^6/ul (4.00-5.40); Red Cell Distribution Width 13 % (10.5-15)
[2018-04-16 19:42] LABS: TSH (Thyroid Stimulating Horm) 1.42 mcIU/mL (0.34-5.60)
[2018-04-16 20:25] LABS: Albumin 4.9 g/dL (3.2-5.2); Anion Gap 5 mmol/L (2-11); CO2 Carbon Dioxide 31 mmol/L (22-32); Calcium 10.1 mg/dL (8.6-10.3); Chloride 100 mmol/L (101-111); Potassium 4.3 mmol/L (3.5-5.0); Sodium 136 mmol/L (135-145)
[2018-04-16 20:31] LABS: ALT 19 U/L (7-52); AST 19 U/L (13-39); Albumin/Globulin Ratio 1.6 (1-3); Alkaline Phosphatase 71 U/L (34-104); BUN/Creatinine Ratio 15.4 (8-20); Blood Urea Nitrogen 14 mg/dL (6-24); EGFR African American 116.1 (>60); Glucose 97 mg/dL (70-100); Total Protein 7.9 g/dL (6.4-8.9)
[2018-04-16 21:05] LABS: C Reactive Protein < 1.00 mg/L (<8.01)
[2018-04-18 16:42] LABS: Lyme Disease Serology Positive (Negative)
--- NOTE | 2018-04-19 12:37 | ED ---
Progress - Progress Note Progress Note: Lyme testing lab : Lyme disease serology is positive, Western blot test is pending at this time. Patient is already on doxycycline. No change, await final Western blot test results Course/Dx - Course Course Of Treatment: The plan today is to check some lab work to include Lyme serology. Also checking a CRP CBC CMP and TSH. We will treat with 14 days of doxycycline for possible Lyme. Patient be followed his primary care doctor and if symptoms continue with neurology Dr. Spaulding. Reevaluate sooner if worse or any other questions or concerns. - Diagnoses Provider Diagnoses: Arthralgia, Myalgia Discharge - Sign-Out/Discharge Documenting (check all that apply): Post-Discharge Follow Up All imaging exams completed and their final reports reviewed: No Studies - Discharge Plan Condition: Stable Disposition: HOME Prescriptions: DOXYcycline CAP(*) [DOXYcycline 100MG CAP(*)] 100 mg PO BID #28 cap Patient Education Materials: Musculoskeletal Pain (ED), Arthralgia (ED) Referrals: Simone Spaulding MD [Medical Doctor] - Tim Holt MD [Primary Care Provider] - Additional Instructions: FOLLOW UP WITH YOUR PRIMARY CARE DOCTOR. FOLLOW UP WITH NEUROLOGY, DR SPAULDING, IF NOT IMPROVED. GET RECHECKED FOR ANY WORSENING OF YOUR CONDITION OR QUESTIONS OR CONCERNS. - Billing Disposition and Condition Condition: STABLE Disposition: Home
[2018-04-20 21:04] LABS: Lyme Disease IgG Ab WB Negative (Negative); Lyme Disease IgM Bands Present p41 kDa
== END 2018-04-16 14:55 | disposition home or self-care (01) ==
LOC: UCEAST 12:47
DX: M25.50 Pain in unspecified joint (principal); M79.10 Myalgia, unspecified site
CPT/HCPCS: 36415; 80053; 84443; 85025; 86140; 86617; 86618; 86703; 99212; G0463

== ENCOUNTER 2018-04-22 14:41 | Emergency (ER) | payer BC ==
[2018-04-22 14:55] VITALS: BP 152/78
--- NOTE | 2018-04-22 15:31 | UC ---
Allergic Reaction HPI - HPI Summary HPI Summary: PATIENT HAS TAKEN 5 DAYS OF DOXYCYCLINE FOR POSSIBLE LYME DISEASE. YESTERDAY HE DEVELOPED MILD SWELLING, REDNESS AND ITCHING TO BOTH HIS EARS. HIS LIPS FEEL TINGLY. HE DENIES ANY DIFFICULTY BREATHING OR AIRWAY COMPROMISE. HE HAS A BLOTCHY RASH ON HIS UPPER CHEST. HAS NOT TAKEN ANY ANTIHISTAMINES SINCE ONSET OF SYMPTOMS. HAS NOT TAKEN DOXYCYCLINE IN THE PAST. DENIES ANY OTHER NEW EXPOSURES. - History of Current Complaint Chief Complaint: UCAllergicReaction Stated Complaint: ALLERGIC REACTION TO ANTI Time Seen by Provider: 04/22/18 14:55 Hx Obtained From: Patient Onset/Duration: Gradual Onset, Lasting Days - 1 DAY, Still Present Severity Initially: Moderate Severity Currently: Moderate Pain Intensity: 0 Pain Scale Used: 0-10 Numeric Character: Pruritus, Hives Alleviating Factor(s): Nothing Associated Signs And Symptoms: Positive: Rash. Negative: Abdominal Pain, Chest Pain, Cough Wheezing, Diaphoresis, Difficulty Breathing, Hoarseness, Nausea, Syncope, Throat Tightening, Vomiting - Related Hx Possible Reaction To: Medications - Allergies/Home Medications Allergies/Adverse Reactions: Allergies Allergy/AdvReac Type Severity Reaction Status Date / Time shellfish derived Allergy Anaphylatic Verified 04/22/18 14:55 Shock PMH/Surg Hx/FS Hx/Imm Hx Cardiovascular History: Hypertension Respiratory History: Asthma Other History Of: Negative For: Anticoagulant Therapy - Surgical History Surgical History: None Surgery Procedure, Year, and Place: No SHx - Family History Known Family History: Positive: Hypertension, Other - Mother had TIA at 32 years old and is fully recovered now Negative: Cardiac Disease, Diabetes, Respiratory Disease, Seizure Disorder, Blood Disorder - Social History Alcohol Use: None Substance Use Type: None Smoking Status (MU): Never Smoked Tobacco Review of Systems All Other Systems Reviewed And Are Negative: Yes Constitutional: Positive: Negative Skin: Positive: Rash Respiratory: Positive: Negative Cardiovascular: Positive: Negative Gastrointestinal: Positive: Negative Physical Exam Triage Information Reviewed: Yes Appearance: Well-Appearing, No Pain Distress, Well-Nourished Vital Signs: Initial Vital Signs Temp 98 F 04/22/18 14:47 Pulse 93 04/22/18 14:47 Resp 16 04/22/18 14:47 BP 152/78 04/22/18 14:47 Pulse Ox 100 04/22/18 14:47 Vital Signs Reviewed: Yes Eyes: Positive: Conjunctiva Clear ENT: Positive: Hearing grossly normal, Pharynx normal, TMs normal, Other - NO TONGUE/LIP SWELLING Neck: Positive: Supple, Nontender, No Lymphadenopathy Respiratory Exam: Normal Cardiovascular Exam: Normal Abdomen Description: Positive: Soft Musculoskeletal: Positive: No Edema Neurological: Positive: Alert Psychological: Positive: Age Appropriate Behavior Skin: Positive: Rashes - BILATERAL EARS SLIGHTLY EDEMATOUS AND ERYTHEMATOUS. BLOTCHY RASH UPPER CHEST Allergic Reaction Course/Dx - Course Course Of Treatment: DISCUSSED WITH PATIENT THAT HE IS LIKELY EXPERIENCING AN ALLERGIC REACTION TO THE DOXYCYCLINE. SUGGESTED CHANGING TO ALTERNATIVE MEDICINE SUCH AMOXICILLIN VERSUS STOPPING THE MEDICATION ALTOGETHER GIVEN THAT HIS CONFIRMATORY TESTING FOR LYME DISEASE WAS IN FACT NEGATIVE. PATIENT STATES THAT HE HAS BEEN STRUGGLING WITH THE SYMPTOMS FOR WEEKS AND THAT HE HAS TRIED AMOXICILLIN WITH NO EFFECT. HE STATES HE ALREADY FEELS BETTER HAVING BEEN ON THE DOXYCYCLINE FOR SEVERAL DAYS AND WOULD LIKE TO CONTINUE THE COURSE TO COMPLETION IF HIS SYMPTOMS REMAIN MILD. ADVISED THAT HE TAKE ANTIHISTAMINES DAILY AND WILL ALSO GIVE A SHORT COURSE OF PREDNISONE TO HELP COMBAT ANY ALLERGIC REACTION. STRONGLY ADVISED HIM TO STOP THE MEDICATION AND GO TO THE ER IF HE DEVELOPS ANY WORSENING SYMPTOMS. - Differential Dx/Diagnosis Provider Diagnosis: Allergic reaction caused by a drug Discharge - Sign-Out/Discharge Documenting (check all that apply): Patient Departure All imaging exams completed and their final reports reviewed: No Studies - Discharge Plan Condition: Stable Disposition: HOME Prescriptions: predniSONE TAB* [Deltasone 20 MG TAB*] 40 mg PO DAILY #10 tab Patient Education Materials: General Allergic Reaction (ED) Referrals: Tim Holt MD [Primary Care Provider] - 1 Week Additional Instructions: YOU MAY BE EXPERIENCING A MILD ALLERGIC REACTION TO THE DOXYCYCLINE. WE DISCUSSED STOPPING THE DOXYCYCLINE YOUR CONFIRMATORY TESTING FOR LYME DISEASE WAS NEGATIVE, HOWEVER GIVEN THAT YOU'RE FEELING IMPROVED AND WOULD LIKE TO CONTINUE THE MEDICATION I WOULD RECOMMEND YOU TAKE 10 MG OF LORATADINE EVERY MORNING AND 50 MG OF BENADRYL EVERY NIGHT. WILL ALSO PROVIDE A SHORT COURSE OF PREDNISONE TO HELP COMBAT ANY ALLERGIC REACTION. SHOULD YOU DEVELOP WORSENING FACIAL SWELLING, TONGUE/LIP SWELLING, THROAT TIGHTNESS, WHEEZING, DIFFICULTY BREATHING, NAUSEA, FEVER OR ANY OTHER CONCERNING SYMPTOMS STOP THE MEDICINE AND GO TO DIRECTLY TO THE [facility] [place] ER FOR FURTHER EVALUATION. - Billing Disposition and Condition Condition: STABLE Disposition: Home
== END 2018-04-22 16:02 | disposition home or self-care (01) ==
LOC: UCEAST 14:41
DX: L27.1 Localized skin eruption due to drugs and medicaments taken internally (principal); T36.4X5A Adverse effect of tetracyclines, initial encounter; Y92.9 Unspecified place or not applicable; Z91.013 Allergy to seafood
CPT/HCPCS: 99212; G0463